=== PATIENT | female | born 1950 | race Caucasian/White ===

== ENCOUNTER → 2016-12-06 | Outpatient (CLI) | payer MEDICARE, BC ==
--- NOTE | 2016-12-07 09:57 | BD ---
EXAMINATION TYPE: MG DEXA axial skeleton. DATE OF EXAM: 12/06/2016 COMPARISON: 11/12/2014 CLINICAL HISTORY: Height: 63.5 IN Weight: 137 LBS FRAX RISK QUESTIONS: Alcohol (3 or more units per day): NO Family History (Parent hip fracture): YES MOTHER Glucocorticoids (More than 3mos): NO (Ex: prednisone, prednisolone, methylprednisolone, dexamethasone, and hydrocortisone). History of Fracture in Adulthood: YES RT ANKLE AGE 63 Secondary Osteoporosis: 1. Type 1 Diabetes: NO 2. Hyperthyroidism: NO 3. Menopause before 45: NO 4. Malnutrition: NO 5. Chronic liver disease: NO Rheumatoid Arthritis: NO Current Tobacco Use: NO RISK FACTORS HISTORY OF: Family History of Osteoporosis: YES MOTHER Active: YES Diet low in dairy products/other sources of calcium: YES Postmenopausal woman: AGE 55 MEDICATIONS: Osteoporosis Medications: Which medication: Prolia How Lon YEARS PROLIA. FOSAMAX AGE 40 - 60 Additional Medications: PROLIA, CALCIUM, VIT D, BLADDER MEDICATION, BLADDER MED, EXAM MEASUREMENTS: Bone mineral densitometry was performed using the [employer] System. Bone mineral density as measured about the Lumbar spine is: ----- L1-L4(G/cm2): 1.127 T Score Values are as follows: ----- L2: 0.3 ----- L3: -0.7 ----- L4: -0.8 ----- L1-L4: -0.4 Bone mineral density has: Increased 9.4% since study of: 11/12/2014 Bone mineral density about the R hip (g/cm2): 0.971 Bone mineral density about the L hip (g/cm2): 0.947 T Score values are as follows: -----R Neck: -0.5 -----L Neck: -0.7 -----R Total: -0.5 -----L Total: -0.7 Bone mineral density has: Increased 3.5% since study of: 11/12/2014 IMPRESSION: No evidence of osteopenia or osteoporosis. NOTE: T-SCORE=SD OF THE YOUNG ADULT MEAN.
== END | disposition home or self-care (01) ==
LOC: RADBDWWP 16:09
PROVIDERS: ATTEND Internal Medicine Rheumatology
DX: M81.0 Age-related osteoporosis without current pathological fracture (principal)
CPT/HCPCS: 77080

== ENCOUNTER → 2017-09-01 | Outpatient (CLI) | payer MEDICARE, BC ==
--- NOTE | 2017-09-06 08:33 | MM ---
Reason for exam: screening (asymptomatic). Last mammogram was performed 1 year and 6 months ago. History: Patient is postmenopausal and has history of other cancer at age 51. Physical Findings: A clinical breast exam by your physician is recommended on an annual basis and results should be correlated with mammographic findings. MG 3D Screening Mammo W/Cad Bilateral CC and MLO view(s) were taken. Prior study comparison: February 26, 2016, bilateral MG screening mammo w CAD. February 24, 2015, bilateral MG screening mammo w CAD. There are scattered fibroglandular densities. No significant changes when compared with prior studies. ASSESSMENT: Negative, BI-RAD 1 RECOMMENDATION: Routine screening mammogram of both breasts in 1 year.
== END | disposition home or self-care (01) ==
LOC: RADMAMWWP 14:42
PROVIDERS: ATTEND Obstetrics & Gynecology
DX: Z12.31 Encounter for screening mammogram for malignant neoplasm of breast (principal)
CPT/HCPCS: 77063; 77067

== ENCOUNTER → 2018-12-07 | Outpatient (CLI) | payer MEDICARE, BC ==
--- NOTE | 2018-12-08 09:07 | BD ---
EXAMINATION TYPE: Axial Bone Density DATE OF EXAM: 12/07/2018 COMPARISON: 11.29.2016 CLINICAL HISTORY: M 82.0 Height: 64 Weight: 138.9 FRAX RISK QUESTIONS: Alcohol (3 or more units per day): no Family History (Parent hip fracture): yes-mother Glucocorticoids (More than 3mos): no (Ex: prednisone, prednisolone, methylprednisolone, dexamethasone, and hydrocortisone). History of Fracture in Adulthood: yes Secondary Osteoporosis: 1. Type 1 Diabetes: no 2. Hyperthyroidism: no 3. Menopause before 45: no 4. Malnutrition: no 5. Chronic liver disease: no Rheumatoid Arthritis: no Current Tobacco Use: no RISK FACTORS HISTORY OF: Family History of Osteoporosis: yes-mother Active: yes Diet low in dairy products/other sources of calcium: yes Postmenopausal woman: age 51 Lost more than 2 inches in height since high school: no MEDICATIONS: bladder meds Additional History: EXAM MEASUREMENTS: Bone mineral densitometry was performed using the [employer] System. Bone mineral density as measured about the Lumbar spine is: ----- L1-L4(G/cm2): 1.032 T Score Values are as follows: ----- L2: -0.9 ----- L3: -1.4 ----- L4: -1.7 ----- L1-L4: -1.2 Bone mineral density has: decreased -9.8 % since study of: 11.29.2016 Bone mineral density about the R hip (g/cm2): 0.929 Bone mineral density about the L hip (g/cm2): 0.954 T Score values are as follows: -----R Neck: -0.8 -----L Neck: -0.6 -----R Total: -1.0 -----L Total: -1.2 Bone mineral density has: decreased -6.9 % since study of: 11.29.2016 IMPRESSION: Osteopenia (T Score between -2.5 and -1). There is slightly increased risk of fracture and the patient may be considered for treatment. Re-Screen 2-5 years. NOTE: T-SCORE=SD OF THE YOUNG ADULT MEAN.
== END | disposition home or self-care (01) ==
LOC: RADBDWWP 14:58
PROVIDERS: ATTEND Internal Medicine Rheumatology
DX: M85.80 Other specified disorders of bone density and structure, unspecified site (principal)
CPT/HCPCS: 77080

== ENCOUNTER → 2019-10-25 | Outpatient (CLI) | payer MEDICARE ==
--- NOTE | 2019-10-26 10:07 | MM ---
Reason for exam: screening (asymptomatic). Last mammogram was performed 2 years and 2 months ago. History: Patient is postmenopausal and has history of other cancer at age 51. Physical Findings: A clinical breast exam by your physician is recommended on an annual basis and results should be correlated with mammographic findings. MG 3D Screening Mammo W/Cad Bilateral CC and MLO view(s) were taken. Prior study comparison: September 01, 2017, bilateral MG 3d screening mammo w/cad. February 26, 2016, bilateral MG screening mammo w CAD. There are scattered fibroglandular densities. There is no discrete abnormality. No significant changes when compared with prior studies. ASSESSMENT: Negative, BI-RAD 1 RECOMMENDATION: Routine screening mammogram of both breasts in 1 year.
== END | disposition home or self-care (01) ==
LOC: RADMAMWWP 15:34
PROVIDERS: ATTEND Family Medicine
DX: Z12.31 Encounter for screening mammogram for malignant neoplasm of breast (principal)
CPT/HCPCS: 77063; 77067

== ENCOUNTER → 2021-12-25 | Outpatient (CLI) | payer MEDICARE ==
--- NOTE | 2021-12-28 08:36 | MM ---
Reason for Exam: Screening (asymptomatic). Last mammogram was performed 2 year(s) and 2 month(s) ago. Patient History: Menarche at age 15. First Full-Term at age 31. Late child-bearing (after 30). Postmenopausal. Risk Values: Sanaz 5 year model risk: 2.2%. NCI Lifetime model risk: 6.3%. Prior Study Comparison: 05/09/1986 Screening Mammogram, [facility]. 02/19/2010 Bilateral Screening Mammogram, [facility]. 01/17/2014 Bilateral Screening Mammogram, [facility]. 02/24/2015 Bilateral Screening Mammogram, [facility]. 02/26/2016 Bilateral Screening Mammogram, [facility]. 09/01/2017 Bilateral Screening Mammogram, [facility]. 10/25/2019 Bilateral Screening Mammogram, [facility]. Tissue Density: There are scattered fibroglandular densities. Findings: Analyzed By CAD. There is no suspicious group of microcalcifications or new suspicious mass in either breast. Overall Assessment: Negative, BI-RAD 1 Management: Screening Mammogram of both breasts in 1 year. A clinical breast exam by your physician is recommended on an annual basis and results should be correlated with mammographic findings. Electronically signed and approved by: Jose Wick M.D. Radiologis
== END | disposition home or self-care (01) ==
LOC: RADMAMWWP 16:58
PROVIDERS: ATTEND Family Medicine
DX: Z12.31 Encounter for screening mammogram for malignant neoplasm of breast (principal)
CPT/HCPCS: 77063; 77067

== ENCOUNTER → 2022-11-03 | Outpatient (CLI) | payer MEDICARE ==
--- NOTE | 2022-11-04 08:49 | CT ---
EXAMINATION TYPE: CT brain wo con DATE OF EXAM: 11/03/2022 COMPARISON: None HISTORY: pain after fall and hit head x5 days ago. CT DLP: 961.90 mGycm Automated exposure control for dose reduction was used. FINDINGS: There is a subcutaneous soft tissue hematoma overlying the superior right posterior parietal bone mirian suring 3.3 cm. Calvarium is intact. There is nasal septal deviation. Ventricles and basal cisterns and sulci overlying the convexities are compatible with patient's age. No midline shift or mass effect. Faint low attenuation periventricular compatible with remote white m atter change. Orbits are symmetric. Mild chronic sinusitis. Craniocervical junction is maintained. IMPRESSION: SUBCUTANEOUS HEMATOMA MEASURING 3.3 CC MEASURES ALONG THE POSTERIOR RIGHT CEREBRAL CONVEXITY. CALVARI UM INTACT. NO ACUTE INTRACRANIAL HEMORRHAGE. A Yellow level critical message alert has been initiated for Miguel Ferrari MD via the [employer] Critical Results System on 11/04/2022 8:40 AM. This message alert has been sent to Miguel Ferrari MD via the preferences provided by the clinician for the receipt of Radiology Critical Findings. Message ID [id number].
== END | disposition home or self-care (01) ==
LOC: RADCTMAIN 12:54
PROVIDERS: ATTEND Family Medicine
DX: S06.31AA Contusion and laceration of right cerebrum with loss of consciousness status unknown, initial encounter (principal); R42 Dizziness and giddiness; X58.XXXA Exposure to other specified factors, initial encounter
CPT/HCPCS: 70450

== ENCOUNTER → 2022-12-01 | Outpatient (CLI) | payer MEDICARE ==
[2022-12-01 18:11] LABS: Chol/HDL Ratio 2.56 Ratio; LDL Cholesterol,Calculated 105.3 mg/dL (0.0-131.0)
== END | disposition home or self-care (01) ==
LOC: LABWHC1 09:38
PROVIDERS: ATTEND Family Medicine
DX: Z01.812 Encounter for preprocedural laboratory examination (principal); I10 Essential (primary) hypertension; M12.9 Arthropathy, unspecified
CPT/HCPCS: 36415; 80061

== ENCOUNTER → 2022-12-14 | Outpatient (CLI) | payer MEDICARE ==
--- NOTE | 2022-12-14 22:51 | MR ---
EXAMINATION TYPE: MR brain wo con DATE OF EXAM: 12/14/2022 COMPARISON: CT brain November 03, 2022 HISTORY: Headache, Dizziness, Post concussion. Posttraumatic headache. TECHNIQUE: Multiplanar, multisequence imaging of the brain and brainstem is performed without IV cont rast. FINDINGS: Diffusion weighted images demonstrate no evidence of a recent infarct or other diffusion abnormality. There is mild ventricular and sulcal prominence. There are few scattered foci of T2 hyperintensity se en throughout the white matter bilaterally. Less than 10 distinct lesions are seen. No suspicious are as of abnormal signal or blood product and T2 star weighted images is noted. Midline structures demonstrate normal morphology. The craniocervical junction appears within normal limits. Normal vascular flow voids are present. Bilateral aphakia is redemonstrated. Nasal septum rem ains deviated to right of midline. Paranasal sinuses are grossly clear. Artifact at level of the maxi lla is noted. No suspicious increased fluid signal level of mastoid air cells bilaterally. IMPRESSION: 1. Mild diffuse age-related cerebral atrophy and nonspecific white matter changes. Findings may be on the basis of altered vascular mechanics related to product of migraine headaches. Other etiologies n ot excluded. No suspicious intraparenchymal blood product.
== END | disposition home or self-care (01) ==
LOC: RADMRIMAIN 20:45
PROVIDERS: ATTEND Family Medicine
DX: G44.309 Post-traumatic headache, unspecified, not intractable (principal); G93.89 Other specified disorders of brain; G31.1 Senile degeneration of brain, not elsewhere classified; I20.9 Angina pectoris, unspecified; R00.2 Palpitations
CPT/HCPCS: 70551

== ENCOUNTER 2022-12-21 07:16 | Observation (INO) | payer MEDICARE ==
[~2022-12-21 07:16] MED LIST: ACETAMINOPHEN TAB 500 MG TAB PO PRN; DEXAMETHASONE SOD PHOSPHATE 4 MG/ML 1 ML VIAL IV ONE; GABAPENTIN 300 MG CAP PO PRN; HYDROmorphone 0.5 MG/0.5 ML SYRINGE IVP PRN; LIDOCAINE 1% (10MG/ML) FOR IV START INTRADERMA PRN; MELOXICAM 7.5 MG TAB PO PRN; MIDAZOLAM 2 MG/2 ML VIAL IV PRN; ONDANSETRON 4 MG/2 ML VIAL IVP ONE; TRANEXAMIC 1,000 MG/100ML-NACL 1,000 MG in SALINE 1 100ML.BAG IVPB PRN
[2022-12-21] MEDS: LACTATED RINGERS 1,000 ML IV SCH (08:21)
[2022-12-21] MEDS ORDERED: bisacodyL 10 MG SUPP RECTAL PRN (08:49)
[2022-12-21] MEDS ORDERED: MAGNESIUM HYDROXIDE 2,400 MG/30 ML CUP PO PRN (08:49)
[2022-12-21] MEDS ORDERED: NA PHOS,M-B/NA PHOS,DI-BA 133 ML ENEMA RECTAL PRN (08:49)
[2022-12-21] MEDS ORDERED: NALOXONE 0.4 MG/ML 1 ML VIAL IV PRN (08:49)
[2022-12-21] MEDS ORDERED: HYDROmorphone 0.5 MG/0.5 ML SYRINGE IVP PRN ×2 (08:49)
[2022-12-21] MEDS ORDERED: ONDANSETRON 4 MG/2 ML VIAL IVP PRN (08:49)
[2022-12-21] MEDS ORDERED: TRANEXAMIC 1,000 MG/100ML-NACL PREMIX BAG ONE (09:09)
[2022-12-21] MEDS ORDERED: PROPOFOL 10 MG/ML 20 ML VIAL IV ONE (09:09)
[2022-12-21] MEDS ORDERED: DEXAMETHASONE SOD PHOSPHATE 4 MG/ML 1 ML VIAL ONE (09:09)
[2022-12-21] MEDS ORDERED: ROPIVACAINE 5 MG/ML 30 ML VIAL ONE (09:09)
[2022-12-21] MEDS ORDERED: MIDAZOLAM 2 MG/2 ML VIAL ONE (09:09)
[2022-12-21] MEDS ORDERED: ceFAZolin 1,000 MG in SODIUM CHLORIDE 0.9% 1,000 ML IRRIGATION ONE (09:13)
--- NOTE | 2022-12-21 10:32 | P.OP ---
Date of Procedure: 12/21/22 Preoperative Diagnosis: Severe osteoarthritis right knee Postoperative Diagnosis: Severe osteoarthritis right knee Procedure(s) Performed: Right total knee arthroplasty utilizing [employer] patient specific guides Implants: Alexandra [employer] Nephew Journey II CR Oxinium cruciate retaining femoral component size 4, right [employer] Journey nonporous tibial baseplate size 3, right [employer] Journey II, XLPE Deep Dished articular insert, size 10 mm, Size 3-4, right [employer] Journey Anaid II resurfacing patellar component, oval, 29 mm All components were cemented using Palacos R bone cement The articulation is Oxinium on polyethylene [employer] patient specific guides Anesthesia: spinal Surgeon: Dimas Ortega Auto Painter Helper #1: Jessica Doan Estimated Blood Loss (ml): 50 Pathology: none sent Condition: stable Disposition: PACU Indications for Procedure: The patient's knee is end-stage, and conservative management has failed. The operation of knee replacement has been discussed at length in the office, as well as potential risks and complications. These are inclusive of, but not limited to: Infection, bleeding, scarring, discomfort, stiffness, blood vessel and nerve damage, need for further surgery, failure to relieve symptoms, persistence, recurrence, or worsening of problems, loosening, dislocation, wear, blood clot, pulmonary embolism, , gait dysfunction, stiffness, and other risks as discussed in the office. Patient elects to proceed and the consent form has been signed. Operative Findings: The operative findings are consistent with severe osteoarthritis of the right knee Description of Procedure: Patient was seen in the preoperative area and the consent was reviewed and the operative site was marked with a skin marker. The patient verified the procedure and the operative site. An adductor canal pain catheter was placed by anesthesia in the preoperative area. The patient was then brought to the operating room and given preoperative antibiotics intravenously. A gram of transexamic acid was given intravenously. A spinal anesthetic was administered by the anesthesia department. A Siegel catheter was placed. A tourniquet was placed on the upper thigh and the lower extremity was prepped with chlorhexidine and draped in usual sterile fashion. A universal timeout was then performed which confirmed the patient's name, surgical site, ALLERGIES, and consent. The lower extremity was then exsanguinated and tourniquet was inflated to 250 mmHg. A standard anterior midline approach to the knee was performed. The skin and subcutaneous tissue were sharply dissected down to the patellar tendon. A medial parapatellar arthrotomy was then performed. The knee was then extended, the patellar was everted, and the knee was again flexed. The infra-patellar fat pad was removed in order to enhance exposure. The anterior horns of both menisci were excised, and a release was performed to the posterior medial aspect of the knee. On gross visual inspection, there was complete loss of articular cartilage in the medial and patellofemoral joint spaces. There was also significant cartilage damage in the lateral compartment. There were multiple periarticular osteophytes globally about the knee. The patient specific guide was placed on the distal femur, and pinned in place. Using the patient specific guide, the distal femoral cut was performed. The cutting block was then removed and the cut was checked for symmetry. The spikes of the femoral block was then placed into the predrilled holes, and malleted into place. Two 45 mm pins were then placed into the fixation holes on the cutting block. An harsha wing was then used to ensure there would be no notching with the anterior cut. The anterior condyles were cut without notching. The anterior chord cut was then performed, followed by the posterior cut, posterior chamfer cut, and the anterior chamfer cut. The collateral ligaments were protected during the entire process. The cutting block was then removed. Any remaining bone and osteophytes were removed from the femur with a Ronguer. The femoral canal was plugged with autologous bone. Attention was then directed to the tibia. The remaining ACL was removed with a Ronguer, and the tibia was then gently subluxed forward with a large bent knee retractor. Any remaining menisci were excised. The posterior lateral corner was cauterized in order to coagulate the lateral geniculate artery. The patient specific guide for the tibia was then placed and was held in place with pins. Pinholes were then placed for rotation of the tibial component as well. Proximal tibia was then cut and sized. The femoral trial was placed. A narrow saw blade was then used to remove the anterior intracondylar femoral bone. The CR notch trial was then placed. The tibial trial was placed with the appropriate-sized insert. The knee was able to fully extend and flex to 130 and was stable throughout all range of motion. The knee was then extended and the patella was everted. Patella was then measured, and then using an osteotomy guide, the patella was cut at the appropriate level. The patella was then measured and drilled and the patella trial was then placed. The knee was then taken through range of motion with the patella trial and the patella tracked normally using the no thumbs technique.. The knee was then extended patella trial was then removed and the patella was everted. Knee was then flexed and lug holes were drilled through the femoral trial and the femoral trial was then removed. The tibial was then re-exposed, and the tibial broach guide was then pinned in place after it was set for the appropriate rotation to allow for the most coverage without overhang. The tibia was then reamed and broached. The cut surfaces of bone were then irrigated with pulsatile lavage. The posterior structures were injected with the ropivacaine solution. The knee was also irrigated with Irrisept solution. The components were then opened, the cement was mixed, and the components were then cemented in place. The cement was allowed to harden with the knee in full extension. After the cemented hardened. The tourniquet was released, and hemostasis was obtained. A second gram of transexamic acid was given intravenously. The knee was again irrigated. The knee was again taken through range of motion and found to be stable throughout all range of motion of 0-130, and the patella tracked normally. The fascia was then closed with 0 Vicryl followed by #2 strata fix suture. The subcutaneous tissue was closed with 3-0 Vicryl and 3-0 strata fix. Exofin glue was used for the skin and placed with the knee in flexion. After the glue had dried, and Optafoam silver impregnated dressing was applied. The patient was then transferred to recovery room in stable condition. The healthcare administrative assistant TYLER Martin was required due the complexity surgery and the need for a skilled surgical brace maker. She assisted in positioning, draping, retraction, and closure of the wound.
--- NOTE | 2022-12-21 11:38 | P.ANPRN ---
Procedure Note - Anesthesia - Nerve Block Performed Right Adductor Canal Infusion Time Out Performed: Yes Date of Procedure: 12/21/22 Procedure Start Time: : Procedure Stop Time: : Location of Patient: PreOp Indication: Acute Post-Operative Pain, Requested by Surgeon Sedation Type: Sedate with meaningful contact maintained Preparation: Sterile Prep, Sterile Dressing Position: Supine Catheter: Indwelling Needle Types: Pajunk Needle Gauge: 21 Ultrasound used to visualize needle placement: Yes Ultrasound used to observe medication spread: Yes Blood Aspirated: No Pain Paresthesia on Injection Noted: No Resistance on Injection: Normal Image Stored and Saved: Yes Events: Uneventful and Well Tolerated (Ropivacaine 0.5% 20 mL plus dexamethasone 4 mg)
--- NOTE | 2022-12-21 11:38 | XR ---
EXAMINATION TYPE: XR knee limited RT DATE OF EXAM: 12/21/2022 11:34 AM INDICATION: Patient age:Female; 72 years old; Reason for study: post op; [facility]. COMPARISON: Right knee radiograph 08/11/2022 TECHNIQUE: The Right knee(s) was examined in frontal and crosstable lateral projections. FINDINGS: Postsurgical changes from right total knee arthroplasty with distal femoral and proximal tibial components. Hardware appears intact with appropriate alignment. There is associated soft tissu e gas and edema. No acute fractures or dislocation. IMPRESSION: Postsurgical changes from right total knee arthroplasty. Hardware appears intact with appropriate ali gnment.
--- NOTE | 2022-12-21 11:39 | P.ANPRN ---
Procedure Note - Anesthesia - Nerve Block Performed Right Manuelck Single Time Out Performed: Yes Date of Procedure: 12/21/22 Procedure Start Time: 08:36 Procedure Stop Time: 08:39 Location of Patient: PreOp Indication: Acute Post-Operative Pain, Requested by Surgeon Sedation Type: Sedate with meaningful contact maintained Preparation: Sterile Prep Position: Supine Needle Types: Pajunk Needle Gauge: 21 Ultrasound used to visualize needle placement: Yes Ultrasound used to observe medication spread: Yes Blood Aspirated: No Pain Paresthesia on Injection Noted: No Resistance on Injection: Normal Image Stored and Saved: Yes Events: Uneventful and Well Tolerated (Ropivacaine 0.5% 25 mL plus dexamethasone 4 mg)
[2022-12-21] MEDS: SODIUM CHLORIDE 0.9% 1,000 ML IV SCH (12:45)
[2022-12-21] MEDS ORDERED: LACTATED RINGERS 1,000 ML IV ONE ×2 (12:52)
[2022-12-21] MEDS ORDERED: ROPIVACAINE 0.2%-NS ON-Q PUMP 2 MG/ML EACH MISCELLANE ONE (12:56)
[2022-12-21] MEDS ORDERED: ROPIVACAINE 0.2%-NS ON-Q PUMP 2 MG/ML EACH MISCELLANE PRN (13:19)
[2022-12-21] MEDS: HYDROcodone/APAP 7.5-325MG 1 EACH TAB PO PRN ×2 (13:43→21:47)
[2022-12-21] MEDS: HYDROmorphone 0.5 MG/0.5 ML SYRINGE IVP PRN ×3 (14:56→23:34)
[2022-12-21] MEDS ORDERED: ZOLPIDEM 5 MG TAB PO PRN (18:21)
[2022-12-21] MEDS ORDERED: hydrOXYzine HCL 10 MG TAB PO PRN (18:21)
[2022-12-21] MEDS ORDERED: diazePAM 2 MG TAB PO PRN (20:50)
[2022-12-21] MEDS: ASPIRIN 325 MG TAB PO SCH (21:46)
[2022-12-21] MEDS: [UNRECOGNIZED DRUG - OTHER] PO SCH (21:46)
[2022-12-21] MEDS: SENNOSIDES-DOCUSATE SODIUM 1 EACH TAB PO SCH (21:46)
[2022-12-22] MEDS: SODIUM CHLORIDE 0.9% 1,000 ML IV SCH ×3 (01:55→18:14)
[2022-12-22] MEDS: HYDROmorphone 0.5 MG/0.5 ML SYRINGE IVP PRN ×4 (04:24→21:38)
[2022-12-22] MEDS: LACTATED RINGERS 1,000 ML IV SCH (05:48)
[2022-12-22] MEDS: HYDROcodone/APAP 7.5-325MG 1 EACH TAB PO PRN ×3 (06:55→18:55)
--- NOTE | 2022-12-22 06:58 | P.PN ---
Progress Note - Text Progress Note Date: 12/22/22 The patient is doing well status post total knee replacement. Pain is well con trolled by a combination of local anesthetic infusion through the adductor canal catheter and oral analgesics. There are no signs of infection around the catheter skin entry site. The local anesthetic infusion will be continued as per protocol.
[2022-12-22] MEDS: ASPIRIN 325 MG TAB PO SCH ×2 (08:51→20:54)
[2022-12-22] MEDS: CALCIUM CARB-VIT D 500 MG-5 MCG TAB PO SCH (08:51)
[2022-12-22] MEDS: MULTIVITAMINS, THERA 1 EACH TAB PO SCH (08:51)
[2022-12-22] MEDS: CHOLECALCIFEROL 25 MCG (1000 IU) TABLET PO SCH (08:51)
[2022-12-22] MEDS: ASCORBIC ACID 500 MG TAB PO SCH (08:51)
[2022-12-22] MEDS: MAGNESIUM OXIDE 400 MG TAB PO SCH (08:51)
--- NOTE | 2022-12-22 09:55 | P.PN ---
Subjective Progress Note Date: 12/22/22 This is a 72-year-old female who is status post right total knee arthroplasty. This is postoperative day #1 and patient is seen and evaluated at bedside with Dr. Dimas Ortega. Patient states that she had difficulty working with physical therapy today and has not been able to void since her Siegel catheter was removed this morning. Patient denies any fever/chills, numbness, weakness, tingling, abdominal pain, shortness of breath or chest pain. Objective - Vital Signs Vital signs: Vital Signs Temp 97.8 F 12/22/22 06:59 Pulse 84 12/22/22 06:59 Resp 18 12/22/22 06:59 BP 124/71 12/22/22 06:59 Pulse Ox 94 L 12/22/22 06:59 FiO2 Intake & Output 12/21/22 12/22/22 12/22/22 18:59 06:59 18:59 Intake Total 1681 Output Total 350 2500 Balance 1331 -2500 Weight 60.7 kg Intake: IV 1201 Oral 480 Output: Urine 300 2500 Estimated Blood Loss 50 Other: Voiding Method Indwelling Catheter # Voids 0 - Exam Vital signs are stable. Patient is in no acute distress and is alert and oriented 3. Calf is soft and nontender to palpation. Dressing is clean, dry, and intact. Patient has full foot and ankle motion without pain or difficulty. Sensation intact. Neurovascular status and circulatory status are intact. Assessment and Plan (1) Osteoarthritis of right knee Current Visit: Yes Status: Acute Code(s): M17.11 - UNILATERAL PRIMARY OSTEOARTHRITIS, RIGHT KNEE SNOMED Code(s): 719330695567027 (2) S/P total knee arthroplasty Current Visit: Yes Status: Acute Code(s): Z96.659 - PRESENCE OF UNSPECIFIED ARTIFICIAL KNEE JOINT SNOMED Code(s): 3323975918496 Plan: #1 Continue with routine postoperative care and pain control, leave dressing in place for 7 days. #2 Anticoagulation with aspirin. #3 Physical therapy today. #4 Appreciate input from internal medicine. #5 Anticipate discharge home with home care in the next 24-48 hours.
[2022-12-22] MEDS: [UNRECOGNIZED DRUG - OTHER] PO PRN ×2 (10:27→20:57)
[2022-12-22] MEDS: [UNRECOGNIZED DRUG - OTHER] PO SCH (10:28)
[2022-12-22 11:00] LABS: Basophils # (A) 0.02 X 10*3/uL (0.00-0.10); Basophils % (A) 0.2 %; Eosinophils # (A) 0.02 X 10*3/uL (0.04-0.35); Eosinophils % (A) 0.2 %; HCT 33.1 % (37.2-46.3); HGB 10.4 d/dL (12.0-15.0); Lymphocytes # (A) 1.06 X 10*3/uL (0.90-5.00); MCH 29.5 pg (27.0-32.0); MCHC 31.4 d/dL (32.0-37.0); Mean Platelet Volume 10.1 FL (9.5-12.2); Monocytes # (A) 0.82 X 10*3/uL (0.20-1.00); Monocytes % (A) 8.5 %; NRBC Per 100 WBC 0 X 10*3/uL (0.00-0.01); Neutrophils # (A) 7.68 X 10*3/uL (1.80-7.70); Neutrophils % (A) 79.8 %; Platelet Count 188 X 10*3/uL (140-440); RBC 3.52 X 10*6/uL (4.10-5.20); RDW 13.1 % (11.5-14.5); WBC 9.63 X 10*3/uL (4.50-10.00)
--- NOTE | 2022-12-22 11:50 | P.CONS ---
History of Present Illness - Reason for Consult Perioperative complication management - History of Present Illness Patient is a 72-year-old female admitted for elective left knee arthroplasty 6) surgery still having significant pain because of which she patient is taking the hospital today. Patient is otherwise clinically doing well did not pass gas yet. Doesn't have any major medical problems. REVIEW OF SYSTEMS: CONSTITUTIONAL: No fever, no malaise, no fatigue. HEENT: No recent visual problems or hearing problems. Denied any sore throat. CARDIOVASCULAR: No chest pain, orthopnea, PND, no palpitations, no syncope. PULMONARY: No shortness of breath, no cough, no hemoptysis. GASTROINTESTINAL: No diarrhea, no nausea, no vomiting, no abdominal pain. NEUROLOGICAL: No headaches, no weakness, no numbness. HEMATOLOGICAL: Denies any bleeding or petechiae. GENITOURINARY: Denies any burning micturition, frequency, or urgency. MUSCULOSKELETAL/RHEUMATOLOGICAL: As mentioned in HPI ENDOCRINE: Denies any polyuria or polydipsia. The rest of the 14-point review of systems is negative. PHYSICAL EXAMINATION: GENERAL: The patient is alert and oriented x3, not in any acute distress. Well developed, well nourished. HEENT: Pupils are round and equally reacting to light. EOMI. No scleral icterus. No conjunctival pallor. Normocephalic, atraumatic. No pharyngeal erythema. No thyromegaly. CARDIOVASCULAR: S1 and S2 present. No murmurs, rubs, or gallops. PULMONARY: Chest is clear to auscultation, no wheezing or crackles. ABDOMEN: Soft, nontender, nondistended, normoactive bowel sounds. No palpable organomegaly. MUSCULOSKELETAL: Deferred to orthopedic surgery EXTREMITIES: No cyanosis, clubbing, or pedal edema. NEUROLOGICAL: Gross neurological examination did not reveal any focal deficits. SKIN: No rashes. Assessment and plan -Knee arthroplasty pain management and DVT prophylaxis as per primary service will continue to monitor for any postoperative complications. Incentive spirometry. DVT prophylaxis: Past Medical History Past Medical History: Eye Disorder Additional Past Medical History / Comment(s): FX RT ANKLE. FELL 6 WEEKS AGO/hematoma. INTERSTITIAL CYSTITIS. CATARACT Bilat eyes History of Any Multi-Drug Resistant Organisms: None Reported Past Surgical History: Bowel Resection, Cholecystectomy, Hernia Repair, Orthopedic Surgery Additional Past Surgical History / Comment(s): CYST REMOVED RT WRIST 9-18-15.,COLON RESECTION X2 FOR PERFORATED BOWEL AFTER COLONOSCOPY AND COLON MASS,LT TOT KNEE replacement and then revision, CHRISTINE KNEE ORTHOSCOPIC , Bilat cataract removal. Right total knee replacement. Past Anesthesia/Blood Transfusion Reactions: No Reported Reaction Past Psychological History: No Psychological Hx Reported Smoking Status: Never smoker Past Alcohol Use History: Occasional Past Drug Use History: None Reported - Past Family History Mother Family Medical History: CVA/TIA Father History Unknown: Yes Medications and Allergies Home Medications Medication Instructions Recorded Confirmed Type Ascorbic Acid [Vitamin C] 1,000 mg PO DAILY 11/25/14 12/21/22 History Calcium Carbonate/Vitamin D3 1 each PO DAILY 11/25/14 12/21/22 History [Calcium 600 + Vit D Tablet] Cholecalciferol [Vitamin D3] 2,000 unit PO DAILY 11/25/14 12/21/22 History Magnesium 600 mg PO DAILY 11/25/14 12/21/22 History Multivitamins, Thera [Theragran] 1 each PO DAILY 11/25/14 12/21/22 History Ambien(Unk) 10 mg PO HS PRN 12/14/22 12/21/22 History Uro-Mp 1 tab PO BID 12/14/22 12/21/22 History diazePAM [Valium] 2 mg PO DAILY PRN 12/14/22 12/21/22 History hydrOXYzine HCL [Hydroxyzine HCl] 10 mg PO HS PRN 12/14/22 12/21/22 History Aspirin 325 mg PO BID #60 tab 12/21/22 Rx HYDROcodone/APAP 7.5-325MG [[place] 1 - 2 tab PO Q6H PRN #32 tab 12/21/22 Rx 7.5-325] Sennosides [Senokot] 2 tab PO DAILY PRN #60 tablet 12/21/22 Rx Allergies Allergy/AdvReac Type Severity Reaction Status Date / Time No Known Allergies Allergy Verified 12/21/22 08:01 Physical Exam Vitals: Vital Signs Temp Pulse Pulse Resp BP Pulse Ox 12/22/22 06:59 97.8 F 84 18 124/71 94 L 12/22/22 01:34 98.1 F 77 18 96/62 92 L 12/21/22 19:42 98.1 F 77 18 105/65 96 12/21/22 13:19 98.6 F 85 16 127/75 96 12/21/22 12:55 80 16 108/64 94 L 12/21/22 12:40 84 16 116/67 94 L 12/21/22 12:25 87 16 109/59 93 L 12/21/22 12:11 77 16 106/55 95 12/21/22 11:55 73 16 111/59 95 Intake and Output 12/21/22 12/22/22 12/22/22 22:59 06:59 14:59 Intake Total 480 Output Total 2500 Balance 480 -2500 Intake: Oral 480 Output: Urine 2500 Other: Voiding Method Indwelling Catheter # Voids 0 Results CBC & Chem 7: 12/22/22 06:38 Labs: Abnormal Lab Results - Last 24 Hours (Table) 12/22/22 Range/Units 06:38 RBC 3.52 L (4.10-5.20) X 10*6/uL Hgb 10.4 L (12.0-15.0) d/dL Hct 33.1 L (37.2-46.3) % MCHC 31.4 L (32.0-37.0) d/dL Eosinophils # 0.02 L (0.04-0.35) X 10*3/uL
[2022-12-22 15:24] VITALS: PULSE 80
[2022-12-22] MEDS ORDERED: ZOLPIDEM 5 MG TAB PO PRN (17:41)
[2022-12-22] MEDS: SENNOSIDES-DOCUSATE SODIUM 1 EACH TAB PO SCH (20:55)
[2022-12-23] MEDS: LACTATED RINGERS 1,000 ML IV SCH (07:37)
[2022-12-23 07:39] VITALS: BP 103/61; RESP 18; TEMP 98.7
[2022-12-23] MEDS: SODIUM CHLORIDE 0.9% 1,000 ML IV SCH (08:30)
[2022-12-23] MEDS: HYDROcodone/APAP 7.5-325MG 1 EACH TAB PO PRN (08:32)
[2022-12-23] MEDS ORDERED: PROMETHAZINE 25 MG TAB PO PRN (08:36)
--- NOTE | 2022-12-23 08:42 | P.PN ---
Subjective Progress Note Date: 12/23/22 Principal diagnosis: Left total knee arthroplasty This is a 72-year-old female who underwent a left total knee arthroplasty on Tuesday with Dr. Ortega. She is a known patient to our office. She had some difficulty with pain control yesterday. This morning she is sitting up playing in bed with breakfast in front of her. However she reports she is quite nauseous this morning. She reports [employer] does not work for her anymore. Pain is better today. Objective - Vital Signs Vital signs: Vital Signs Temp 98.7 F 12/23/22 06:52 Pulse 80 12/23/22 06:52 Resp 18 12/23/22 06:52 BP 103/61 12/23/22 06:52 Pulse Ox 90 L 12/23/22 06:52 FiO2 Intake & Output 12/22/22 12/23/22 12/23/22 18:59 06:59 18:59 Output Total 700 900 Balance -700 -900 Output: Urine 700 900 Other: # Voids 4 # Bowel Movements 1 - Constitutional General appearance: Present: cooperative, no acute distress - EENT Eyes: Present: PERRLA - Neck Neck: Present: normal ROM. Absent: lymphadenopathy, rigidity - Respiratory Respiratory: bilateral: CTA - Cardiovascular Rhythm: regular Heart sounds: normal: S1, S2 - Gastrointestinal General gastrointestinal: Present: soft. Absent: tenderness - Psychiatric Psychiatric: Present: A&O x's 3, appropriate affect, intact judgment & insight - Labs CBC & Chem 7: 12/22/22 06:38 Labs: Abnormal Lab Results - Last 24 Hours (Table) 12/22/22 Range/Units 06:38 RBC 3.52 L (4.10-5.20) X 10*6/uL Hgb 10.4 L (12.0-15.0) d/dL Hct 33.1 L (37.2-46.3) % MCHC 31.4 L (32.0-37.0) d/dL Eosinophils # 0.02 L (0.04-0.35) X 10*3/uL Assessment and Plan (1) Osteoarthritis of right knee Current Visit: Yes Status: Acute Code(s): M17.11 - UNILATERAL PRIMARY OSTEOARTHRITIS, RIGHT KNEE SNOMED Code(s): 741140965627958 (2) S/P total knee arthroplasty Current Visit: Yes Status: Acute Code(s): Z96.659 - PRESENCE OF UNSPECIFIED ARTIFICIAL KNEE JOINT SNOMED Code(s): 9068890530704 (3) Nausea Current Visit: Yes Status: Acute Code(s): R11.0 - NAUSEA SNOMED Code(s): 595102856 Plan: We'll add promethazine. Patient may be discharged from medical standpoint when cleared by surgeon. Patient seen and evaluated by nurse practitioner, physician in agreement with plan
--- NOTE | 2022-12-23 09:55 | P.DS ---
Providers Date of admission: 12/22/22 10:21 Expected date of discharge: 12/23/22 Attending physician: Dimas Ortega Consults: 12/21/22 08:49 Consult Physician Routine Consulting Provider: Miguel Ferrari Consult Reason/Comments: medical management Do you want consulting provider notified?: Yes Primary care physician: Miguel Ferrari - Discharge Diagnosis(es) (1) Osteoarthritis of right knee Current Visit: Yes Status: Acute (2) S/P total knee arthroplasty Current Visit: Yes Status: Acute Hospital Course: This is a 72-year-old female with known history of degenerative arthritis of the right knee. The patient presented for evaluation as an outpatient. After discussion and consideration patient elects to proceed with total knee arthroplasty. The patient is seen preoperatively by Dr. Ortega and medically cleared for surgery by their primary care physician. Patient is admitted to [facility] on 12/21/2022 for total knee arthroplasty. The procedure is performed without complication or sequelae. The patient is doing well postoperatively. Labs and vital signs are stable on day of discharge. On day of discharge patient's knee incision is healing well. There is minimal erythema. There is no drainage noted at this time. There is minimal soft tissue swelling to the knee. Patient has full foot and ankle motion without difficulty or pain. Calf is soft and nontender to palpation. Neurovascular status to the right lower extremity is intact. Patient is discharged home in good condition. Please see [facility] rec for accurate list of home medications. Plan - Discharge Summary Discharge Rx Participant: No New Discharge Prescriptions: New Aspirin 325 mg PO BID #60 tab HYDROcodone/APAP 7.5-325MG [[place] 7.5-325] 1 - 2 tab PO Q6H PRN #32 tab PRN Reason: Pain Sennosides [Senokot] 2 tab PO DAILY PRN #60 tablet PRN Reason: Constipation No Action Magnesium 600 mg PO DAILY Cholecalciferol [Vitamin D3] 2,000 unit PO DAILY Calcium Carbonate/Vitamin D3 [Calcium 600 + Vit D Tablet] 1 each PO DAILY Ascorbic Acid [Vitamin C] 1,000 mg PO DAILY Multivitamins, Thera [Theragran] 1 each PO DAILY diazePAM [Valium] 2 mg PO DAILY PRN PRN Reason: Anxiety Uro-Mp 1 tab PO BID hydrOXYzine HCL [Hydroxyzine HCl] 10 mg PO HS PRN PRN Reason: Insomnia Ambien(Unk) 10 mg PO HS PRN PRN Reason: Insomnia Discharge Medication List Ascorbic Acid [Vitamin C] 1,000 mg PO DAILY 11/25/14 [History] Calcium Carbonate/Vitamin D3 [Calcium 600 + Vit D Tablet] 1 each PO DAILY 11/25/14 [History] Cholecalciferol [Vitamin D3] 2,000 unit PO DAILY 11/25/14 [History] Magnesium 600 mg PO DAILY 11/25/14 [History] Multivitamins, Thera [Theragran] 1 each PO DAILY 11/25/14 [History] Ambien(Unk) 10 mg PO HS PRN 12/14/22 [History] Uro-Mp 1 tab PO BID 12/14/22 [History] diazePAM [Valium] 2 mg PO DAILY PRN 12/14/22 [History] hydrOXYzine HCL [Hydroxyzine HCl] 10 mg PO HS PRN 12/14/22 [History] Aspirin 325 mg PO BID #60 tab 12/21/22 [Rx] HYDROcodone/APAP 7.5-325MG [[place] 7.5-325] 1 - 2 tab PO Q6H PRN #32 tab 12/21/22 [Rx] Sennosides [Senokot] 2 tab PO DAILY PRN #60 tablet 12/21/22 [Rx] Follow up Appointment(s)/Referral(s): Miguel Ferrari MD [Primary Care Provider] - 1 Week [facility] [NON-STAFF] - 1 Week ([facility] will call you to arrange a visit) Dimas Ortega DO [Doctor of Osteopathic Medicine] - 01/06/23 10:15 am Activity/Diet/Wound Care/Special Instructions: Weightbearing as tolerated with a walker. CPM 5-6h daily as tolerated. Leave dressing intact. Dressing may be removed by home care nurse or by patient in 7 days. Then change dressing twice daily until follow up. May shower with initial dressing intact and after removal. If dressing become saturated, please remove. Recommend use of compression stockings daily until follow up to help prevent swelling and blood clots. May remove at night before sleeping. Please take aspirin 325mg twice daily for 30 days to prevent blood clots. Please follow up with [facility] and call with any questions or concerns, . Discharge Disposition: HOME WITH HOME HEALTH SERVICES
[2022-12-23] MEDS: MULTIVITAMINS, THERA 1 EACH TAB PO SCH (10:22)
[2022-12-23] MEDS: MAGNESIUM OXIDE 400 MG TAB PO SCH (10:22)
[2022-12-23] MEDS: ASCORBIC ACID 500 MG TAB PO SCH (10:22)
[2022-12-23] MEDS: CHOLECALCIFEROL 25 MCG (1000 IU) TABLET PO SCH (10:22)
[2022-12-23] MEDS: ASPIRIN 325 MG TAB PO SCH (10:22)
[2022-12-23] MEDS: CALCIUM CARB-VIT D 500 MG-5 MCG TAB PO SCH (10:23)
== END 2022-12-23 13:30 | disposition home health service (06) ==
LOC: OR 07:16 → 4SSUR 10:47 → OR 12-22 10:21
PROVIDERS: ADMIT Orthopaedic Surgery; ATTEND Orthopaedic Surgery
DX: M17.11 Unilateral primary osteoarthritis, right knee (principal); M25.761 Osteophyte, right knee; G89.18 Other acute postprocedural pain; Z79.899 Other long term (current) drug therapy; Z79.82 Long term (current) use of aspirin; R11.0 Nausea
CPT/HCPCS: 96376 ×2; 96361 ×3; 96365; 96366; 96375 ×2; 97116; 97161; 97535; 97166; 64999; 64448; 85025; 73560; 27447; G0378 ×2; C1713; C1776; C1751; J2250; J1100; J0690 ×3; J2405 ×2; J2795 ×2; J2704; J1170 ×2

== ENCOUNTER → 2023-02-04 | Outpatient (CLI) | payer MEDICARE ==
--- NOTE | 2023-02-04 14:46 | BD ---
EXAMINATION TYPE: Axial Bone Density DATE OF EXAM: 02/04/2023 CLINICAL HISTORY: 72 years old Female. ICD-10 CODE: M81.0 AGE RELATED OSTEOPOROSIS Height: 63.25 Weight: 127 FRAX RISK QUESTIONS: Family History (Parent hip fracture): yes, mother History of Fracture in Adulthood: yes, rt ankle Secondary Osteoporosis: no RISK FACTORS HISTORY OF: Family History of Osteoporosis: yes, mother Active: yes Diet low in dairy products/other sources of calcium: no Postmenopausal woman: yes,51 Lost more than 2 inches in height since high school: no Frequent falls: no Poor Health: no MEDICATIONS: Additional Medications: yes bladder meds EXAM MEASUREMENTS: Bone mineral densitometry was performed using the Blendagram System. Bone mineral density as measured about the Lumbar spine is: ----- L1-L4(G/cm2): 0.997 T Score Values are as follows: ----- L1: -1.6 ----- L2: -1.0 ----- L3: -1.4 ----- L4: -2.1 ----- L1-L4: -1.5 Z Score Values are as follows: ----- L1: 0.3 ----- L2: 1.0 ----- L3: 0.5 ----- L4: -0.2 ----- L1-L4: 0.4 Bone mineral density has: Decreased -3.4% since study of: 12/07/2018 Bone mineral density about the R hip (g/cm2): 0.754 Bone mineral density about the L hip (g/cm2): 0.739 T Score values are as follows: -----R Neck: -1.7 -----L Neck: -1.6 -----R Total: -2.0 -----L Total: -2.1 Z Score values are as follows: -----R Neck: 0.2 -----L Neck: 0.3 -----R Total: -0.3 -----L Total: -0.4 Bone mineral density has: Decreased -14.1% since study of: 12/07/2018 FRAX%s: The graph provided illustrates a 25.1% chance for a major osteoporotic fx and a 8.2% chance f or the hips probability for fx in 10 years time. IMPRESSION: Osteopenia (T Score between -2.5 and -1). There is slightly increased risk of fracture and the patient may be considered for treatment. Re-Screen 2-5 years. NOTE: T-SCORE=SD OF THE YOUNG ADULT MEAN.
== END | disposition home or self-care (01) ==
LOC: RADBDWWP 14:01
PROVIDERS: ATTEND Internal Medicine Rheumatology
DX: M85.89 Other specified disorders of bone density and structure, multiple sites (principal); M81.0 Age-related osteoporosis without current pathological fracture; Z78.0 Asymptomatic menopausal state
CPT/HCPCS: 77080

== ENCOUNTER → 2023-02-04 | Outpatient (CLI) | payer MEDICARE ==
--- NOTE | 2023-02-07 14:38 | MM ---
Reason for Exam: Screening (asymptomatic). Last mammogram was performed 1 year(s) and 2 month(s) ago. Patient History: Menarche at age 15. First Full-Term at age 31. Late child-bearing (after 30). Postmenopausal. Risk Values: Sanaz 5 year model risk: 2.2%. NCI Lifetime model risk: 6.0%. Prior Study Comparison: 09/01/2017 Bilateral Screening Mammogram, [facility]. 10/25/2019 Bilateral Screening Mammogram, [facility]. 12/25/2021 Bilateral MG 3D screening mammo w/cad, [facility]. Tissue Density: There are scattered fibroglandular densities. Findings: Analyzed By CAD. Pattern appears stable. Focal asymmetries in the left subareolar region, unchanged. No suspicious groups of microcalcifications, spiculated or lobular masses, architectural distortion or other secondary signs of malignancy are mammographically apparent. Overall Assessment: Benign, BI-RAD 2 Management: Screening Mammogram of both breasts in 1 year. A negative mammogram report should not preclude additional follow up of suspicious palpable abnormalities. Patient should continue monthly self breast exam. A clinical breast exam by your physician is recommended on an annual basis and results should be correlated with mammographic findings. Electronically signed and approved by: Jason Guevara D.O. Radiologis
== END | disposition home or self-care (01) ==
LOC: RADMAMWWP 14:04
PROVIDERS: ATTEND Family Medicine
DX: Z12.31 Encounter for screening mammogram for malignant neoplasm of breast (principal); Z78.0 Asymptomatic menopausal state
CPT/HCPCS: 77063; 77067

== ENCOUNTER → 2024-01-10 | Outpatient (CLI) | payer MEDICARE ==
--- NOTE | 2024-01-10 14:17 | US ---
EXAMINATION TYPE: US carotid duplex BILAT DATE OF EXAM: 01/10/2024 COMPARISON: NONE CLINICAL INDICATION: Female, 73 years old with history of R42 DIZZINESS AND GIDDINESS; dizziness Additional History: R42* Dizziness TECHNIQUE: Grayscale, color Doppler and spectral Doppler evaluation of the bilateral carotid systems and vertebral arteries.Indirect Doppler criteria was utilized. FINDINGS: EXAM MEASUREMENTS: RIGHT: Peak Systolic Velocity (PSV) cm/sec ----- Right CCA: 90.7 ----- Right ICA: 128.6 ----- Right ECA: 95.3 ICA/CCA ratio: 1.4 RIGHT: End Diastole cm/sec ----- Right CCA: 25.9 ----- Right ICA: 38.1 ----- Right ECA: 20.2 LEFT: Peak Systolic Velocity (PSV) cm/sec ----- Left CCA: 83.6 ----- Left ICA: 94.1 ----- Left ECA: 90.7 ICA/CCA ratio: 1.1 LEFT: End Diastole cm/sec ----- Left CCA: 18.9 ----- Left ICA: 31.4 ----- Left ECA: 15.3 VERTEBRALS (direction of flow): Right Vertebral: Antegrade Left Vertebral: Antegrade Rhythm: Normal Mild plaquing and intimal thickening present IMPRESSION: 1. Mild to moderate narrowing right internal carotid artery estimated as just above 50%. Criteria for Assigning % of Stenosis / Diameter reduction (Estimation based on the indirect measurements of the internal carotid artery velocities (ICA PSV). 1. Normal (no stenosis)=ICA PSV < 125 cm/s: ratio < 2.0: ICA EDV<40 cm/s. 2. Less than 50% stenosis=ICA PSV < 125 cm/s: ratio < 2.0: ICA EDV<40 cm/s. 3. 50 to 69% stenosis=ICA PSV of 125 to 230 cm/s: ration 2.0 ? 4.0: ICA EDV 40-100 cm/s. 4. Greater than 70% stenosis to near occlusion= ICA PSV > 230 cm/s: ratio > 4.0: ICA EDV > 100 cm/s. 5. Near occlusion= ICA PSV velocities may be low or undetectable: variable ratio and ICA EDV. 6. Total occlusion=unable to detect flow. [facility], , 01/10/2024 2:15 PM
--- NOTE | 2024-01-11 10:58 | CA ---
Transthoracic Echo Report Name: Kimmie Brady Age: 73 Gender: F : 1950 Exam Date: 01/10/2024 13:52 Exam Location: [place] [facility] Ht (in): 64 Wt (lb): 128 Ordering Physician: Miguel Ferrari MD Attending/Referring Phys: Nurse Special Peggy Perales RDCS Procedure CPT: Indications: R42 Dizziness Cardiac Hx: Technical Quality: Good Contrast 1: Total Dose (mL): Contrast 2: Total Dose (mL): MEASUREMENTS (Male / Female) Normal Values 2D ECHO LV Diastolic Diameter PLAX 3.7 cm 4.2 - 5.9 / 3.9 - 5.3 cm LV Systolic Diameter PLAX 2.6 cm IVS Diastolic Thickness 0.9 cm 0.6 - 1.0 / 0.6 - 0.9 cm LVPW Diastolic Thickness 0.9 cm 0.6 - 1.0 / 0.6 - 0.9 cm LV Relative Wall Thickness 0.5 RV Internal Dim ED PLAX 2.6 cm LA Systolic Diameter LX 2.7 cm 3.0 - 4.0 / 2.7 - 3.8 cm LV Diastolic Volume MOD 4C 79.5 cm??? LV Systolic Volume MOD 4C 33.3 cm??? LV Ejection Fraction MOD 4C 58.1 % LV Cardiac Index MOD 4C 1850.9 cm???/min???m??? LV Diastolic Length 4C 7.4 cm LV Systolic Length 4C 5.7 cm LV Diastolic Volume MOD 2C 66.7 cm??? LV Systolic Volume MOD 2C 26.9 cm??? LV Ejection Fraction MOD 2C 59.6 % LV Cardiac Index MOD 2C 1592.5 cm???/min???m??? LV Diastolic Length 2C 7.4 cm LV Systolic Length 2C 5.7 cm M-MODE Aortic Root Diameter MM 2.9 cm LA Systolic Diameter MM 2.1 cm LA Ao Ratio MM 0.7 AV Cusp Separation MM 2.0 cm DOPPLER AV Peak Velocity 169.8 cm/s AV Peak Gradient 11.5 mmHg Mitral E Point Velocity 57.3 cm/s Mitral A Point Velocity 73.4 cm/s Mitral E to A Ratio 0.8 MV Deceleration Time 360.5 ms MV E' Velocity 4.3 cm/s Mitral E to MV E' Ratio 13.4 TR Peak Velocity 216.4 cm/s TR Peak Gradient 18.7 mmHg Right Ventricular Systolic Press 28.7 mmHg FINDINGS Left Ventricle Left ventricular ejection fraction is estimated at 55-60 %. Small left ventricular cavity. Left ventricular wall thickness normal. Normal left ventricular wall motion. Right Ventricle Normal right ventricular size and function. Right ventricular systolic pressure within normal limits. Right Atrium Normal right atrial size. No right atrial thrombus or mass seen. Left Atrium Normal left atrial size. No left atrial thrombus or mass present. Mitral Valve Structurally normal mitral valve. Trace mitral regurgitation. Aortic Valve Trileaflet aortic valve. No aortic valve stenosis or regurgitation. Tricuspid Valve Structurally normal tricuspid valve. Mild tricuspid regurgitation. Pulmonic Valve Structurally normal pulmonic valve. Trace pulmonic regurgitation. Pericardium No pericardial or pleural effusion. Aorta Normal size aortic root and proximal ascending aorta. CONCLUSIONS Normal LV function Previewed by: Dr. Quintin Celestin MD (Electronically Signed) Final Date: 11 January 2024 10:57
== END | disposition home or self-care (01) ==
LOC: RADUSWWP 13:01
PROVIDERS: ATTEND Family Medicine
DX: I65.23 Occlusion and stenosis of bilateral carotid arteries (principal); R42 Dizziness and giddiness
CPT/HCPCS: 93306; 93880

== ENCOUNTER → 2024-02-17 | Outpatient (CLI) | payer MEDICARE ==
--- NOTE | 2024-02-18 22:57 | MM ---
Reason for Exam: Screening (asymptomatic). Last screening mammogram was performed 12 month(s) ago. Patient History: Menarche at age 15. First Full-Term at age 31. Late child-bearing (after 30). Postmenopausal. Estrogen and Progesterone, starting at age 72. Risk Values: Sanaz 5 year model risk: 2.2%. NCI Lifetime model risk: 5.7%. Prior Study Comparison: 09/01/2017 Bilateral Screening Mammogram, [facility]. 10/25/2019 Bilateral Screening Mammogram, [facility]. 12/25/2021 Bilateral MG 3D screening mammo w/cad, [facility]. 02/04/2023 Bilateral MG 3D screening mammo w/cad, [facility]. Tissue Density: There are scattered areas of fibroglandular density. Findings: Analyzed By CAD. The pattern is stable. There is a stable focal asymmetry in the subareolar left breast. On the left mediolateral oblique view that may be a subtle distortion which is a change from comparison. Compression view is recommended on the mediolateral oblique view anterior to mid position Right breast:No suspicious groups of microcalcifications, spiculated or lobular masses, architectural distortion or other secondary signs of malignancy are mammographically apparent. Overall Assessment: Incomplete: need additional imaging evaluation, BI-RAD 0 Management: Diagnostic Mammogram of the left breast. A negative mammogram report should not preclude additional follow up of suspicious palpable abnormalities. Patient should continue monthly self breast exam. A clinical breast exam by your physician is recommended on an annual basis and results should be correlated with mammographic findings. Note on Sanaz scores and lifetime risk: 1. A Sanaz score greater than 3% is considered moderate risk. If this is the case, consider specialist referral to assess eligibility for a risk reducing agent. 2. If overall lifetime risk for the development of breast cancer is 20% or higher, the patient may qualify for future screening with alternating mammogram and breast MRI. [facility], , 02/18/2024 10:55 PM. Electronically signed and approved by: Jason Guevara D.O. Radiologis
== END | disposition home or self-care (01) ==
LOC: RADMAMWWP 14:02
PROVIDERS: ATTEND Family Medicine
DX: Z12.31 Encounter for screening mammogram for malignant neoplasm of breast (principal); Z78.0 Asymptomatic menopausal state; R92.323 Mammographic fibroglandular density, bilateral breasts
CPT/HCPCS: 77063; 77067

== ENCOUNTER → 2024-02-24 | Outpatient (CLI) | payer MEDICARE ==
--- NOTE | 2024-02-24 14:51 | MM ---
Reason for Exam: Additional evaluation requested from abnormal screening. Last screening mammogram was performed less than 1 month ago. Patient History: Menarche at age 15. First Full-Term at age 31. Late child-bearing (after 30). Postmenopausal. Estrogen and Progesterone, starting at age 72. Risk Values: Sanaz 5 year model risk: 2.2%. NCI Lifetime model risk: 5.7%. Prior Study Comparison: 12/25/2021 Bilateral MG 3D screening mammo w/cad, [facility]. 02/04/2023 Bilateral MG 3D screening mammo w/cad, [facility]. 02/17/2024 Bilateral MG 3D screening mammo w/cad, [facility]. Tissue Density: Left: There are scattered areas of fibroglandular density. Findings: Analyzed By CAD. No persistent mass or distortion. No suspicious mitral calcifications present within the left breast. Overall Assessment: Negative, BI-RAD 1 Management: Screening Mammogram of both breasts in 1 year. . Results were given to the patient verbally at the time of exam. Patient should continue monthly self-breast exams. A clinical breast exam by your physician is recommended on an annual basis. This exam should not preclude additional follow-up of suspicious palpable abnormalities. Note on Sanaz scores and lifetime risk: 1. A Sanaz score greater than 3% is considered moderate risk. If this is the case, consider specialist referral to assess eligibility for a risk reducing agent. 2. If overall lifetime risk for the development of breast cancer is 20% or higher, the patient may qualify for future screening with alternating mammogram and breast MRI. [facility], , 02/24/2024 2:48 PM. Electronically signed and approved by: Jose Wick M.D. Radiologis
== END | disposition home or self-care (01) ==
LOC: RADMAMWWP 14:16
PROVIDERS: ATTEND Family Medicine
DX: R92.8 Other abnormal and inconclusive findings on diagnostic imaging of breast (principal); Z78.0 Asymptomatic menopausal state; R92.322 Mammographic fibroglandular density, left breast
CPT/HCPCS: 77065; G0279; 77061